=== PATIENT | male | born 1930 | race Caucasian/White ===

== ENCOUNTER 2016-11-22 06:30 | Day surgery (SDC) | payer MEDICARE, OTHER ==
[~2016-11-22 06:30] MED LIST: FLOMAX4 PO; JANUMET XR 50-1 EACH PO; JANUMET1 TAB PO; NORV10 PO; ZESTORETIC PO; ZOCOR40 PO
== END 2016-11-22 16:03 | disposition home or self-care (01) ==
LOC: SDC 06:30
PROVIDERS: Orthopaedic Surgery
PROC: B01BZZZ Fluoroscopy of Spinal Cord (ICD-10-PCS; 2016-11-22)
PROC: 3E0R3BZ Introduction of Anesthetic Agent into Spinal Canal, Percutaneous Approach (ICD-10-PCS; principal; 2016-11-22 08:15)
DX: M54.17 Radiculopathy, lumbosacral region (principal); G20 Parkinson's disease; I10 Essential (primary) hypertension; E78.00 Pure hypercholesterolemia, unspecified; M19.90 Unspecified osteoarthritis, unspecified site; E11.9 Type 2 diabetes mellitus without complications; Z87.442 Personal history of urinary calculi; Z98.890 Other specified postprocedural states
CPT/HCPCS: 82962; J1040; J2250; J3010; Q9967